=== PATIENT | male | born 1935 | race Caucasian/White ===

== ENCOUNTER 2018-10-07 19:58 | Emergency (ER) | payer MEDICARE ==
[2018-10-07] MEDS ORDERED: LEVO75TA73 PO (20:25)
[2018-10-07] MEDS ORDERED: METO25TA93 PO (20:25)
[2018-10-07] MEDS ORDERED: ATOR40TA24 PO (20:25)
[2018-10-07 20:33] LABS: PLATELET COUNT, AUTOMATED 211 K/uL (150-450)
--- NOTE | 2018-10-07 20:51 | ER Report ---
History and Physical Time Seen By MD: 19:57 HPI/ROS CHIEF COMPLAINT: Stroke HISTORY OF PRESENT ILLNESS: 83-year-old male history of hypertension, hypothyroid, hypercholesterol presents with sudden onset decreased mental status and right-sided weakness that began at 7:30. was sitting at table eating dinner with him when he slumped over. She states he was completely normal before this time. They were traveling through [place] in an RV. He has not had recent illnesses. He has had no recent surgeries. He has no known brain tumor or prior hemorrhage. He does not have known prior arrhythmia. He takes a baby aspirin daily. He is on no other blood thinners. He has had no prior stroke. He is status post CABG. Patient arrives by EMS. Prehospital glucose is 155. He is taken directly to CT. Patient is unable to give review of systems due to physical condition. REVIEW OF SYSTEMS: unable to assess Remainder of the 14 system rev: No (patients condition) Allergies: Coded Allergies: No Known Drug Allergies (Unverified , 10/07/18) Home Meds Reported Medications Cholecalciferol (Vitamin D3) (VITAMIN D3) 1,000 Unit Tablet, 1000 UNIT PO QDAY, TAB 10/07/18 Melatonin/Pyridoxine (MELATONIN 5 MG TABLET) 1 Each Tablet, 1 EACH PO QHS PRN for INSOMNIA 10/07/18 Niacin (NIACIN) 500 Mg Tablet, 500 MG PO QDAY 10/07/18 Cider Vinegar (APPLE CIDER VINEGAR) 500 Mg Tablet, 450 MG PO QDAY 10/07/18 Docusate Sodium (COLACE) 100 Mg Capsule, 250 MG PO QDAY, CAPSULE 10/07/18 Atorvastatin Calcium (LIPITOR) 40 Mg Tablet, 1 TAB PO QHS, TAB 10/07/18 Levothyroxine Sodium (LEVOTHYROXINE SODIUM) 75 Mcg Tablet, 75 MCG PO QAM, TAB 10/07/18 Metoprolol Tartrate (METOPROLOL TARTRATE) 25 Mg Tablet, 12.5 MG PO BID, TAB 10/07/18 Reviewed Nurses Notes: Yes Constitutional Vital Sign - Last 24 Hours 10/07/18 10/07/18 10/07/18 10/07/18 20:18 20:23 20:28 20:33 Pulse 119 126 119 119 Resp 30 16 30 86 B/P (MAP) 166/136 (146) Pulse Ox 93 93 88 88 10/07/18 10/07/18 10/07/18 10/07/18 20:34 20:38 20:42 20:43 Pulse 109 107 Resp 23 33 B/P (MAP) 169/102 (124) 167/124 (138) Pulse Ox 89 95 10/07/18 10/07/18 10/07/18 10/07/18 20:44 20:48 20:50 20:53 Pulse 114 121 Resp 20 22 B/P (MAP) 178/109 (132) 175/122 (139) Pulse Ox 97 94 10/07/18 10/07/18 10/07/18 10/07/18 20:58 21:00 21:03 21:08 Pulse 121 113 130 Resp 31 31 28 B/P (MAP) 177/106 (129) Pulse Ox 94 96 96 10/07/18 10/07/18 21:10 21:13 Pulse 114 Resp 36 B/P (MAP) 148/94 (112) Pulse Ox 95 Physical Exam General Appearance: the patient has decreased level of consciousness. He is protecting airway Eyes: Pupils equal and round no pallor or injection. ENT, Mouth: Mucous membranes are moist. Respiratory: basilar ronchi Cardiovascular: tachycardia, irregular rate and rhythm Gastrointestinal: Abdomen is soft and non tender, no masses, bowel sounds normal. Neurological: NIHSS 16; pt is aphasic with r sided facial, arm, leg weakness, but sensation intact. Skin: Warm and dry, no rashes. Musculoskeletal: bilateral lower ext edema DIFFERENTIAL DIAGNOSIS: After history and physical exam differential diagnosis was considered for cva, hemorrhagic stroke, trauma, acs Medical Decision Making Data Points Result Diagram: 10/07/18194810/07/181948 Laboratory Hematology Test 10/07/18 19:49 Red Blood Count 5.33 M/uL (4.00-5.60) Mean Corpuscular Volume 88.2 fL (80.0-96.0) Mean Corpuscular Hemoglobin 29.3 pg (26.0-33.0) Mean Corpuscular Hemoglobin Concent 33.3 g/dL (32.0-36.0) Red Cell Distribution Width 15.8 % (11.5-14.5) Mean Platelet Volume 8.1 fL (7.2-11.1) Neutrophils (%) (Auto) 62.9 % (39.4-72.5) Lymphocytes (%) (Auto) 25.7 % (17.6-49.6) Monocytes (%) (Auto) 8.3 % (4.1-12.4) Eosinophils (%) (Auto) 2.4 % (0.4-6.7) Basophils (%) (Auto) 0.7 % (0.3-1.4) Nucleated RBC Relative Count (auto) 0.1 /100WBC Neutrophils # (Auto) 7.2 K/uL (2.0-7.4) Lymphocytes # (Auto) 2.9 K/uL (1.3-3.6) Monocytes # (Auto) 0.9 K/uL (0.3-1.0) Eosinophils # (Auto) 0.3 K/uL (0.0-0.5) Basophils # (Auto) 0.1 K/uL (0.0-0.1) Nucleated RBC Absolute Count (auto) 0.01 K/uL Prothrombin Time 13.7 seconds (12.0-14.4) Prothromb Time International Ratio 1.04 Activated Partial Thromboplast Time 22 seconds (23-35) Sodium Level 142 mmol/L (137-145) Potassium Level 4.0 mmol/L (3.5-5.0) Chloride Level 105 mmol/L (98-107) Carbon Dioxide Level 26 mmol/L (22-30) Blood Urea Nitrogen 20 mg/dl (9-21) Creatinine 1.20 mg/dl (0.66-1.25) Glomerular Filtration Rate Calc 57.7 Random Glucose 154 mg/dl (75-110) Calcium Level 9.5 mg/dl (8.4-10.2) Total Bilirubin 0.8 mg/dl (0.2-1.3) Aspartate Amino Transf (AST/SGOT) 30 U/L (0-35) Alanine Aminotransferase (ALT/SGPT) 49 U/L (0-56) Alkaline Phosphatase 62 U/L (0-126) Troponin I < 0.012 ng/ml Total Protein 6.8 g/dl (6.3-8.2) Albumin 3.8 g/dl (3.5-5.0) Chemistry Test 10/07/18 19:49 White Blood Count 11.4 k/uL (4.5-11.0) Red Blood Count 5.33 M/uL (4.00-5.60) Hemoglobin 15.6 g/dL (14.0-18.0) Hematocrit 47.0 % (42.0-52.0) Mean Corpuscular Volume 88.2 fL (80.0-96.0) Mean Corpuscular Hemoglobin 29.3 pg (26.0-33.0) Mean Corpuscular Hemoglobin Concent 33.3 g/dL (32.0-36.0) Red Cell Distribution Width 15.8 % (11.5-14.5) Platelet Count 211 K/uL (150-450) Mean Platelet Volume 8.1 fL (7.2-11.1) Neutrophils (%) (Auto) 62.9 % (39.4-72.5) Lymphocytes (%) (Auto) 25.7 % (17.6-49.6) Monocytes (%) (Auto) 8.3 % (4.1-12.4) Eosinophils (%) (Auto) 2.4 % (0.4-6.7) Basophils (%) (Auto) 0.7 % (0.3-1.4) Nucleated RBC Relative Count (auto) 0.1 /100WBC Neutrophils # (Auto) 7.2 K/uL (2.0-7.4) Lymphocytes # (Auto) 2.9 K/uL (1.3-3.6) Monocytes # (Auto) 0.9 K/uL (0.3-1.0) Eosinophils # (Auto) 0.3 K/uL (0.0-0.5) Basophils # (Auto) 0.1 K/uL (0.0-0.1) Nucleated RBC Absolute Count (auto) 0.01 K/uL Prothrombin Time 13.7 seconds (12.0-14.4) Prothromb Time International Ratio 1.04 Activated Partial Thromboplast Time 22 seconds (23-35) Glomerular Filtration Rate Calc 57.7 Calcium Level 9.5 mg/dl (8.4-10.2) Total Bilirubin 0.8 mg/dl (0.2-1.3) Aspartate Amino Transf (AST/SGOT) 30 U/L (0-35) Alanine Aminotransferase (ALT/SGPT) 49 U/L (0-56) Alkaline Phosphatase 62 U/L (0-126) Troponin I < 0.012 ng/ml Total Protein 6.8 g/dl (6.3-8.2) Albumin 3.8 g/dl (3.5-5.0) Coagulation Test 10/07/18 19:49 Prothrombin Time 13.7 seconds Prothromb Time International Ratio 1.04 Activated Partial Thromboplast Time 22 seconds ED Course/Re-evaluation ED Course pt presents with sgs/symptoms of stroke. Appears to have left M1 cutoff on cta. Consented for tpa with neurologist; pt adminsitered tpa. Remains hypertensive but below treatment threshhold. No noted changes in ED. In afib. CXR with widened mediastinum but is s/p cabg and notes that he had not complained of chest/back pain prior to symptoms. No change in alertness in ed; maintining airway Rpt NIHSS 16 at transfer. BP below tx threshhold. flight team has labetolol and understands tx parameters. Decision to Disposition Date: Oct 07, 2018 Decision to Disposition Time: 21:01 Critical Care Time I spent a total of 65 minutes of critical care time in obtaining history, performing a physical exam, bedside monitoring of interventions, collecting and interpreting tests and discussion with consultants but not including time spent performing procedures. Depart Departure Latest Vital Signs Vital Signs Date Time Temp Pulse Resp B/P (MAP) Pulse Ox O2 Delivery O2 Flow Rate FiO2 10/07/18 21:13 114 36 95 10/07/18 21:10 148/94 (112) Impression: Primary Impression: CVA (cerebral vascular accident) Condition: Condition Unchanged Disposition: XFER TO [facility] (Formerly [facility]) Problem Qualifiers Primary Impression: CVA (cerebral vascular accident) CVA mechanism: occlusion Precerebral and cerebral artery: middle cerebral artery Laterality of affected vessel: left Qualified Codes: I63.512 - Cerebral infarction due to unspecified occlusion or stenosis of left middle cerebral artery RUSTY IRENE MD Oct 07, 2018 20:51
[2018-10-07 21:10] VITALS: BP 148/94
[2018-10-07 21:11] LABS: INR 1.04
--- NOTE | 2018-10-07 21:15 | RADIOLOGY IMAGING REPORT ---
FACILITY: [facility] - [place] PATIENT NAME: Giuliano Weaver : 1935 MR: [id number] V: [id number] EXAM DATE: ORDERING PHYSICIAN: RUSTY IREEN TECHNOLOGIST: Location: [facility] Patient: Giuliano Weaver : 1935 Visit/Account:[id number] Date of Sevice: 10/07/2018 CHEST SINGLE AP 10/07/2018 20:01 hours. HISTORY: Stroke alert. COMPARISON: None. TECHNIQUE: Portable AP view of the chest. FINDINGS: TUBES/LINES/HARDWARE: There are external chest leads. PULMONARY/PLEURA: Patient's chin projects over the right lung apex. There is mild prominence of the c entral vascular structures. There is no pneumothorax or pleural effusion. CARDIOMEDIASTINAL: The cardiac silhouette is enlarged, stable. The mediastinal silhouette is within n ormal limits. There is mild aortic calcification. BONES/SOFT TISSUES: No acute osseous abnormality. There is degenerative change of the acromioclavicul ar and glenohumeral joints bilaterally. The visible abdomen is normal. IMPRESSION: 1. Mild central vascular prominence, likely due to vascular congestion. 2. Cardiomegaly. Report Dictated By: Chantal Cronin at 10/07/2018 9:06 PM Report E-Signed By: Chantal Cronin at 10/07/2018 9:08 PM WSN:[id number]
--- NOTE | 2018-10-07 21:16 | RADIOLOGY IMAGING REPORT ---
[place] [facility] [place]: Giul[place] Weaver : 1935 MR: [id number] V: [id number] EXAM DATE: ORDERING PHYSICIAN: RUSTY IRENE TECHNOLOGIST: Location: [facility] [place] Patient: Giuliano Weavre : 1935 Visit/Account:[id number] Date of Sevice: 10/07/2018 CT BRAIN NO CONTRAST EXAMINATION: CT head/brain without contrast HISTORY: Neurologic deficit TECHNIQUE: Contiguous axial images were obtained from the skull base to the vertex without intravenou s contrast. One of the following dose optimization techniques was utilized in the performance of this exam: Autom ated exposure control; adjustment of the mA and/or kV according to the patient's size; or use of an i terative reconstruction technique. Specific details can be referenced in the facility's radiology C T exam operational policy. COMPARISON STUDIES: None FINDINGS: Ventricles/sulci/fissures: Midline in position and normal in configuration. Masses/hemorrhage/midline shift: No hemorrhage noted. White matter: No obvious white matter edema Greenberg-white differentiation: Well-maintained greenberg-white matter differentiation. No sulci effacement or cerebral edema to suggest evolving infarction. Extra-axial spaces: No subdural or epidural fluid collections. No subarachnoid blood.. Small falx lip austen seen in the posterior fossa. Dural venous sinuses/arterial structures: There is a potential hyperdense M1 segment signH Skull base/calvarium: Negative Visualized mastoid air cells/paranasal sinuses: Negative IMPRESSION: 1. Negative CT scan of the head for acute intracranial pathology. Report Dictated By: Shin Mcknight MD at 10/07/2018 8:29 PM Report E-Signed By: Shin Mcknight MD at 10/07/2018 9:10 PM WSN:[id number]
--- NOTE | 2018-10-07 21:16 | RADIOLOGY IMAGING REPORT ---
FACILITY: [facility] [place] PATIENT NAME: Giuliano Weaver : 1935 MR: [id number] V: [id number] EXAM DATE: ORDERING PHYSICIAN: RUSTY IRENE TECHNOLOGIST: Location: [facility] Patient: Giuliano Weaver : 1935 Visit/Account:[id number] Date of Sevice: 10/07/2018 CT EXAMINATION: CTA of the Neck with IV contrast CTA of the Head with IV contrast HISTORY: Stroke symptoms TECHNIQUE: Overlapping thin sections were obtained during a bolus of IV contrast from the aortic ar ch through the vertex. Reconstruction of the source data set includes multiplanar 2D in the sagittal and coronal planes, and 3D coronal thin slab MIP series. Investigative Reporter images have been stored on PA CS. Stenosis of the internal carotid arteries are calculated using NASCET criteria. Contrast: 100 mL of IV Isovue-300 One of the following dose optimization techniques was utilized in the performance of this exam: Autom ated exposure control; adjustment of the mA and/or kV according to the patient's size; or use of an i terative reconstruction technique. Specific details can be referenced in the facility's radiology C T exam operational policy. COMPARISON: None. FINDINGS: Angiographic findings: Aortic arch and great vessels: Atherosclerotic calcific changes within the nonaneurysmal aorta. No dissection. Right CCA / ICA: Negative for dissection. Calcified atherosclerotic plaque seen in the distal commo n carotid extending into carotid bifurcation. Patient motion limits evaluation but there appears to b e at least a 30-50% narrowing suspected. Left CCA / ICA: Negative for dissection. Atherosclerotic calcific changes in the carotid artery. Th ere appears to be a carotid stent in the common carotid extending into the internal carotid artery. I nternal carotid artery is widely patent. Vertebro-basilar: Patent vertebral arteries bilaterally. No dissection or flow-limiting lesions. [place]: negative Of the BRIANNA circulation: negative MCA circulation: There is an abrupt cut off of the M1 segment of the left middle cerebral artery co rrelating with the hyperdense sign on the noncontrast enhanced scan. The occlusion appears to be at l east 1.2 cm before the first collateralized vessel is seen. There is collateral perfusion of the M3 a nd M4 within the sylvian fissure. DIESEL SERVICE APPRENTICE circulation: negative Other: none significant Additional non-angiographic findings: none significant IMPRESSION: 1. 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 This report was called to Dr. Irene at 8:45 PM. Report Dictated By: Shin Mcknight MD at 10/07/2018 8:34 PM Report E-Signed By: Shin Mcknight MD at 10/07/2018 9:09 PM WSN:[id number]
--- NOTE | 2018-10-07 21:24 | RADIOLOGY IMAGING REPORT ---
FACILITY: [facility] PATIENT NAME: Giuliano Weaver : 1935 MR: [id number] V: [id number] EXAM DATE: ORDERING PHYSICIAN: RUSTY IRENE TECHNOLOGIST: Location: [facility] Patient: Giuliano Weaver : 1935 Visit/Account:[id number] Date of Sevice: 10/07/2018 CT EXAMINATION: CTA of the Neck with IV contrast CTA of the Head with IV contrast HISTORY: Stroke symptoms TECHNIQUE: Overlapping thin sections were obtained during a bolus of IV contrast from the aortic ar ch through the vertex. Reconstruction of the source data set includes multiplanar 2D in the sagittal and coronal planes, and 3D coronal thin slab MIP series. Cash Applications Coordinator images have been stored on PA CS. Stenosis of the internal carotid arteries are calculated using NASCET criteria. Contrast: 100 mL of IV Isovue-300 One of the following dose optimization techniques was utilized in the performance of this exam: Autom ated exposure control; adjustment of the mA and/or kV according to the patient's size; or use of an i terative reconstruction technique. Specific details can be referenced in the facility's radiology C T exam operational policy. COMPARISON: None. FINDINGS: Angiographic findings: Aortic arch and great vessels: Atherosclerotic calcific changes within the nonaneurysmal aorta. No dissection. Right CCA / ICA: Negative for dissection. Calcified atherosclerotic plaque seen in the distal commo n carotid extending into carotid bifurcation. Patient motion limits evaluation but there appears to b e at least a 30-50% narrowing suspected. Left CCA / ICA: Negative for dissection. Atherosclerotic calcific changes in the carotid artery. Th ere appears to be a carotid stent in the common carotid extending into the internal carotid artery. I nternal carotid artery is widely patent. Vertebro-basilar: Patent vertebral arteries bilaterally. No dissection or flow-limiting lesions. [place] of [place]: negative Of the BRIANNA circulation: negative MCA circulation: There is an abrupt cut off of the M1 segment of the left middle cerebral artery co rrelating with the hyperdense sign on the noncontrast enhanced scan. The occlusion appears to be at l east 1.2 cm before the first collateralized vessel is seen. There is collateral perfusion of the M3 a nd M4 within the sylvian fissure. BUNDLE TIER circulation: negative Other: none significant Additional non-angiographic findings: none significant IMPRESSION: 1. 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 This report was called to Dr. Irene at 8:45 PM. Report Dictated By: Shin Mcknight MD at 10/07/2018 9:16 PM Report E-Signed By: Shin Mcknight MD at 10/07/2018 9:18 PM WSN:[id number]
[2018-10-07] MEDS ORDERED: [UNRECOGNIZED DRUG - CODE] PO (21:37)
[2018-10-07] MEDS ORDERED: DOCU-416 PO (21:37)
[2018-10-07] MEDS ORDERED: MELA1TAB15 PO (21:37)
[2018-10-07] MEDS ORDERED: CHOL10005 PO (21:37)
[2018-10-07] MEDS ORDERED: NIAC500T85 PO (21:37)
--- NOTE | 2018-10-07 21:57 | EKG ---
FACILITY: [facility] PATIENT NAME: HIMA CANO : [id number] MR: [id number] V: [id number] EXAM DATE: ORDERING PHYSICIAN: RUSTY IRENE TECHNOLOGIST: Test Reason : Blood Pressure : / mmHG Vent. Rate : 117 BPM Atrial Rate : 127 BPM P-R Int : 000 ms QRS Dur : 106 ms QT Int : 354 ms P-R-T Axes : 000 -19 093 degrees QTc Int : 493 ms Atrial fibrillation Left bundle branch block No previous ECGs available Confirmed by SHANI PATEL ([id number]) on 10/07/2018 10:17:11 PM Referred By: Confirmed By:SHANI PATEL
[2018-10-08] MEDS ORDERED: ALTEPLASE 100 MG ONE (00:55)
[2018-10-08] MEDS ORDERED: CALC-852 PO (01:53)
[2018-10-08] MEDS ORDERED: VITA-175 PO (01:53)
[2018-10-08] MEDS ORDERED: CALC625T69 PO (01:53)
== END 2018-10-07 21:30 | disposition short-term general hospital (02) ==
LOC: EDBD 19:58 → ER 20:00
DX: I63.512 Cerebral infarction due to unspecified occlusion or stenosis of left middle cerebral artery (principal)
CPT/HCPCS: 70450; 70496; 70498; 71045; 84484; 85025; 85610; 85730; 93005; 99291; Q9967; 82040; 82247; 82310; 82374; 82435; 82565; 82947; 84075; 84132; 84155; 84295; 84450; 84460; 84520

== ENCOUNTER → 2018-10-07 | Outpatient (REF) ==
[~2018-10-07] MED LIST: ATOR40TA24 PO; CALC-852 PO; CALC625T69 PO; CHOL10005 PO; DOCU-416 PO; LEVO75TA73 PO; MELA1TAB15 PO; METO25TA93 PO; NIAC500T85 PO; VITA-175 PO; [UNRECOGNIZED DRUG - CODE] PO
== END ==
LOC: AMB 21:06
PROVIDERS: ATTEND Nurse Practitioner
DX: Z02.9 Encounter for administrative examinations, unspecified (principal)

== ENCOUNTER → 2018-10-07 | Outpatient (CLI) | payer MEDICARE | LOC: AMB 19:40 | PROVIDERS: ATTEND Nurse Practitioner | DX: I63.9 Cerebral infarction, unspecified (principal) | CPT/HCPCS: A0425; A0427 ==